=== PATIENT | female | born 1995 | race African-American/Black ===

== ENCOUNTER 2020-09-01 17:28 | Emergency (ER) | payer OTHER ==
[~2020-09-01 17:28] MED LIST: DELSYM30 MG/5 ML PO; IBUPROFEN600 MG PO; OMNICEF 300 MG300 MG PO; PREDNISONE 50 M50 MG PO; ZITHROMAX250 MG PO; ZOFRAN ODT 4 MG4 MG PO; ZOFRAN4 MG PO
[2020-09-01] MEDS ORDERED: IBUPROFEN800 MG PO (20:25)
[2020-09-01] MEDS ORDERED: CYCLOBENZAPRINE10 MG PO (20:25)
== END 2020-09-01 20:38 | disposition home or self-care (01) ==
LOC: ER1 17:28
DX: S39.012A Strain of muscle, fascia and tendon of lower back, initial encounter (principal); S16.1XXA Strain of muscle, fascia and tendon at neck level, initial encounter; J45.909 Unspecified asthma, uncomplicated; F17.210 Nicotine dependence, cigarettes, uncomplicated; X50.0XXA Overexertion from strenuous movement or load, initial encounter
CPT/HCPCS: 72040; 72100; 73560; 99283

== ENCOUNTER 2021-03-04 13:55 | Emergency (ER) | payer OTHER ==
[~2021-03-04 13:55] MED LIST changes: +CYCLOBENZAPRINE10 MG PO; +IBUPROFEN800 MG PO
[2021-03-04] MEDS ORDERED: PREDNISONE 20 M20 MG PO (17:16)
[2021-03-04] MEDS ORDERED: PROVENTIL HFA6.7 GM INH (17:17)
== END 2021-03-04 17:30 | disposition home or self-care (01) ==
LOC: ER1 13:55
DX: J06.9 Acute upper respiratory infection, unspecified (principal); R05.9 Cough, unspecified; Z20.822 Contact with and (suspected) exposure to COVID-19; Z87.891 Personal history of nicotine dependence; J45.909 Unspecified asthma, uncomplicated
CPT/HCPCS: 71045; 99284; U0003